=== PATIENT | female | born 1935 | race Caucasian/White ===

== ENCOUNTER 2016-11-17 15:30 | Inpatient (IN) | payer MEDICARE, OTHER ==
[2016-11-17] MEDS ORDERED: TENORMIN25 M1 PO (16:03)
[2016-11-17] MEDS ORDERED: ZOCOR20 M1 PO (16:03)
[2016-11-17] MEDS ORDERED: COZAAR100 M1 PO (16:04)
[2016-11-17] MEDS ORDERED: CALTRATE 600 +1 EAC3 PO (16:04)
[2016-11-17] MEDS ORDERED: FISH OIL 1,0001 EA10 PO (16:04)
[2016-11-18 15:06] LABS: C-REACTIVE PROTEIN 0.3 mg/dl (0-0.9); T4 (THYROXINE) 12.1 ug/dl (5.0-12.6)
[2016-11-18 15:08] LABS: TSH-THYROID STIMULATING HORM. 1.15 uIU/ml (0.40-3.80)
[2016-11-19] MEDS ORDERED: ASPIRIN EC81 MG PO (14:16)
[2016-11-19] MEDS ORDERED: NORVASC5 M2 PO (14:17)
[2016-11-19] MEDS ORDERED: OMEPRAZOLE20 M4 PO (14:18)
== END 2016-11-19 16:35 | disposition home health service (06) | DRG 123 ==
LOC: 5EB 15:30
PROVIDERS: Psychiatry & Neurology Neurology; ADMIT Internal Medicine
DX: H49.01 Third [oculomotor] nerve palsy, right eye (principal); I67.1 Cerebral aneurysm, nonruptured; H53.2 Diplopia; E78.5 Hyperlipidemia, unspecified; Z86.73 Personal history of transient ischemic attack (TIA), and cerebral infarction without residual deficits; Z90.49 Acquired absence of other specified parts of digestive tract; Z95.9 Presence of cardiac and vascular implant and graft, unspecified; Z96.651 Presence of right artificial knee joint; Z88.1 Allergy status to other antibiotic agents; Z88.5 Allergy status to narcotic agent
CPT/HCPCS: A9577; J0360; J1650; J7030; Q9967